=== PATIENT | female | born 1960 | race Caucasian/White ===

== ENCOUNTER → 2017-11-26 | Outpatient (CLI) | payer BC ==
--- NOTE | 2017-11-28 07:45 | MM ---
Reason for exam: screening (asymptomatic). Last mammogram was performed 3 years and 6 months ago. History: Patient is postmenopausal. Retro-pectoral saline implants, 2008. Physical Findings: A clinical breast exam by your physician is recommended on an annual basis and results should be correlated with mammographic findings. MG Screening Mammo Implant/CAD Bilateral CC, MLO, and ID view(s) were taken. Prior study comparison: May 30, 2014, mammogram, performed at [facility]. March 04, 2013, mammogram, performed at [facility]. The breast tissue is heterogeneously dense. This may lower the sensitivity of mammography. There is no discrete abnormality. Bilateral prothesis. ASSESSMENT: Negative, BI-RAD 1 RECOMMENDATION: Routine screening mammogram of both breasts in 1 year.
== END | disposition home or self-care (01) ==
LOC: RADMAMWWP 10:55
PROVIDERS: ATTEND Obstetrics & Gynecology
DX: Z12.31 Encounter for screening mammogram for malignant neoplasm of breast (principal)
CPT/HCPCS: 77067

== ENCOUNTER → 2018-05-21 | Outpatient (CLI) | payer BC ==
--- NOTE | 2018-05-21 12:28 | MR ---
EXAMINATION TYPE: MR brain and iac wo/w con DATE OF EXAM: 05/21/2018 COMPARISON: None HISTORY: Hearing loss left ear, Tinnitus, Vertigo TECHNIQUE: Multiplanar, multisequence images of the brain and brainstem is performed without and with IV contras t, utilizing 6 mL intravenous Gadavist . Small [id number] high-resolution images performed through the internal auditory canals. FINDINGS: Diffusion weighted images demonstrate no evidence of a recent infarct or other diffusion ab normality. There is no extra-axial fluid collection. Scattered hyperintensities on inversion recove ry and T2-weighted sequences are present in the deep white matter, approximately 5-10 lesions includi ng the frontal lobes and periventricular white matter. Largest lesion measures only approximately 3 t o 4 mm axial image 18. The ventricular system and cisternal spaces are normal in size and appearance. The brain volume is age appropriate. Midline structures demonstrate normal morphology. The craniocervical junction appears within normal limits. Post contrast images demonstrate no abnormal enhancement. The dural venous sinuses appear pa tent. The visualized sinuses are clear and the globes are intact. IMPRESSION: Nonspecific white matter demyelination of questionable clinical significance. No evident cerebellopontine angle mass, internal auditory canals show an unremarkable appearance.
== END | disposition home or self-care (01) ==
LOC: RADMRIMAIN 08:44
PROVIDERS: ATTEND Otolaryngology
DX: G37.8 Other specified demyelinating diseases of central nervous system (principal); H91.8X2 Other specified hearing loss, left ear
CPT/HCPCS: 70553; A9581

== ENCOUNTER → 2019-07-13 | Outpatient (CLI) | payer BC ==
--- NOTE | 2019-07-14 09:42 | MM ---
Reason for exam: screening (asymptomatic). Last mammogram was performed 1 year and 7 months ago. History: Patient is postmenopausal. Retro-pectoral saline implants, 2008. Physical Findings: A clinical breast exam by your physician is recommended on an annual basis and results should be correlated with mammographic findings. MG 3D Screen Mammo Imp/Cad Bilateral CC, MLO, and ID view(s) were taken. Prior study comparison: November 26, 2017, bilateral MG screening mammo implant/CAD. May 30, 2014, mammogram, performed at [facility]. There are scattered fibroglandular densities. No suspicious abnormality. Bilateral retropectoral saline implants. No significant changes when compared with prior studies. ASSESSMENT: Negative, BI-RAD 1 RECOMMENDATION: Routine screening mammogram of both breasts in 1 year.
== END | disposition home or self-care (01) ==
LOC: RADMAMWWP 13:00
PROVIDERS: ATTEND Obstetrics & Gynecology
DX: Z12.31 Encounter for screening mammogram for malignant neoplasm of breast (principal); Z98.82 Breast implant status
CPT/HCPCS: 77063; 77067

== ENCOUNTER → 2021-01-12 | Outpatient (CLI) | payer BC ==
--- NOTE | 2021-01-16 09:18 | MM ---
Reason for exam: screening (asymptomatic). Last mammogram was performed 1 year and 6 months ago. History: Patient is postmenopausal. Retro-pectoral saline implants, 2008. Physical Findings: A clinical breast exam by your physician is recommended on an annual basis and results should be correlated with mammographic findings. MG 3D Screen Mammo Imp/Cad Bilateral CC, MLO, and ID view(s) were taken. Prior study comparison: July 13, 2019, bilateral MG 3d screen mammo imp/cad. November 26, 2017, bilateral MG screening mammo implant/CAD. There are scattered fibroglandular densities. Retropectoral saline implants. No significant changes when compared with prior studies. ASSESSMENT: Negative, BI-RAD 1 RECOMMENDATION: Routine screening mammogram of both breasts in 1 year.
== END | disposition home or self-care (01) ==
LOC: RADMAMWWP 13:46
PROVIDERS: ATTEND Obstetrics & Gynecology
DX: Z12.31 Encounter for screening mammogram for malignant neoplasm of breast (principal); Z78.0 Asymptomatic menopausal state
CPT/HCPCS: 77063; 77067

== ENCOUNTER → 2022-01-14 | Outpatient (CLI) | payer BC ==
--- NOTE | 2022-01-15 19:33 | MM ---
Reason for Exam: Screening (asymptomatic). Last screening mammogram was performed 12 month(s) ago. Patient History: Menarche at age 17. First Full-Term at age 30. Postmenopausal. 2008, Implant(s). Risk Values: Jennifer 5 year model risk: 1.4%. NCI Lifetime model risk: 7.6%. Prior Study Comparison: 11/26/2017 Bilateral Screening Mammogram, [facility]. 07/13/2019 Bilateral Screening Mammogram, [facility]. 01/12/2021 Bilateral Screening Mammogram, [facility]. Tissue Density: There are scattered fibroglandular densities. Findings: Analyzed By CAD. Bilateral retropectoral saline implants. No significant change from prior exams. Overall Assessment: Negative, BI-RAD 1 Management: Screening Mammogram of both breasts in 1 year. A clinical breast exam by your physician is recommended on an annual basis and results should be correlated with mammographic findings. Also, the patient should continue monthly self breast exams. Electronically signed and approved by: Marc Hough M.D. Radiologist
== END | disposition home or self-care (01) ==
LOC: RADMAMWWP 10:55
PROVIDERS: ATTEND Obstetrics & Gynecology
DX: Z12.31 Encounter for screening mammogram for malignant neoplasm of breast (principal); Z78.0 Asymptomatic menopausal state
CPT/HCPCS: 77063; 77067

== ENCOUNTER → 2023-04-03 | Outpatient (CLI) | payer BC ==
--- NOTE | 2023-04-04 11:08 | MM ---
Reason for Exam: Screening (asymptomatic). Last mammogram was performed 1 year(s) and 2 month(s) ago. Patient History: Menarche at age 17. First Full-Term at age 30. Postmenopausal. Currently using Estrogen and Progesterone, starting at age 60. 2008, Implant(s). Risk Values: Jennifer 5 year model risk: 1.5%. NCI Lifetime model risk: 7.4%. Prior Study Comparison: 05/30/2014 Screening Mammogram, [facility]. 11/26/2017 Bilateral Screening Mammogram, [facility]. 07/13/2019 Bilateral Screening Mammogram, [facility]. 01/12/2021 Bilateral Screening Mammogram, [facility]. 01/14/2022 Bilateral MG screening mammo implant/CAD, [facility]. Tissue Density: The breast tissue is heterogeneously dense. This may lower the sensitivity of mammography. Findings: Analyzed By CAD. Bilateral breast implants appear intact. There is no suspicious group of microcalcifications or new suspicious mass in either breast. Overall Assessment: Benign, BI-RAD 2 Management: Screening Mammogram of both breasts in [address] [facility] will attempt to contact patient to return for supplemental views and ultrasound if indicated. Patient should continue monthly self-breast exams. A clinical breast exam by your physician is recommended on an annual basis. This exam should not preclude additional follow-up of suspicious palpable abnormalities. Note on Jennifer scores and lifetime risk: 1. A Jennifer score greater than 3% is considered moderate risk. If this is the case, consider specialist referral to assess eligibility for a risk reducing agent. 2. If overall lifetime risk for the development of breast cancer is 20% or higher, the patient may qualify for future screening with alternating mammogram and breast MRI. Electronically signed and approved by: Juan F Colunga DO
== END | disposition home or self-care (01) ==
LOC: RADMAMWWP 10:44
PROVIDERS: ATTEND Obstetrics & Gynecology
DX: Z12.31 Encounter for screening mammogram for malignant neoplasm of breast (principal); Z78.0 Asymptomatic menopausal state
CPT/HCPCS: 77063; 77067

== ENCOUNTER → 2024-06-30 | Outpatient (CLI) | payer BC ==
--- NOTE | 2024-07-02 11:10 | MM ---
Reason for Exam: Screening (asymptomatic). Last mammogram was performed 1 year(s) and 3 month(s) ago. Patient History: Menarche at age 17. First Full-Term at age 30. Postmenopausal. Currently using Estrogen and Progesterone, starting at age 60. 2008, Implant(s). Risk Values: Jennifer 5 year model risk: 1.5%. NCI Lifetime model risk: 7.2%. Prior Study Comparison: 01/12/2021 Bilateral Screening Mammogram, [facility]. 01/14/2022 Bilateral MG screening mammo implant/CAD, [facility]. 04/03/2023 Bilateral MG 3D screen mammo imp/cad., [facility]. Tissue Density: There are scattered areas of fibroglandular density. Findings: Analyzed By CAD. Bilateral breast implants appear intact. Right breast: There is no suspicious group of microcalcifications or new suspicious mass. Left breast: There is no suspicious group of microcalcifications or new suspicious mass. Overall Assessment: Negative, BI-RAD 1 Management: Screening Mammogram of both breasts in [address] [facility] will attempt to contact patient to return for supplemental views and ultrasound if indicated. Patient should continue monthly self-breast exams. A clinical breast exam by your physician is recommended on an annual basis. This exam should not preclude additional follow-up of suspicious palpable abnormalities. Note on Jennifer scores and lifetime risk: 1. A Jennifer score greater than 3% is considered moderate risk. If this is the case, consider specialist referral to assess eligibility for a risk reducing agent. 2. If overall lifetime risk for the development of breast cancer is 20% or higher, the patient may qualify for future screening with alternating mammogram and breast MRI. [facility], , 07/02/2024 11:05 AM. Electronically signed and approved by: Juan F Colunga DO
== END | disposition home or self-care (01) ==
LOC: RADMAMWWP 09:28
PROVIDERS: ATTEND Obstetrics & Gynecology
DX: Z12.31 Encounter for screening mammogram for malignant neoplasm of breast (principal); Z78.0 Asymptomatic menopausal state; R92.323 Mammographic fibroglandular density, bilateral breasts; Z98.82 Breast implant status
CPT/HCPCS: 77063; 77067